=== PATIENT | female | born 1995 | race Caucasian/White ===

== ENCOUNTER 2017-03-14 09:11 | Observation (INO) | payer MEDICAID ==
[2017-03-14] MEDS ORDERED: Sodium Chloride 0.9% 1,000 ML IV ONE (09:18)
[2017-03-14] MEDS ORDERED: Promethazine 12.5 MG in Sodium Chloride 0.9% 50 ML IV PRN (09:34)
[2017-03-14] MEDS ORDERED: Morphine 2 MG/ML Syringe ONE (09:36)
[2017-03-14] MEDS ORDERED: Sodium Chloride 0.9% 1,000 ML IV SCH ×2 (09:45→11:30)
[2017-03-14] MEDS: Morphine 2 MG/ML Syringe IVPUSH PRN ×2 (09:48→11:12)
[2017-03-14] MEDS ORDERED: Ketorolac 60 MG/2 ML SDV IVPUSH ONE ×2 (12:18→15:52)
[2017-03-14] MEDS ORDERED: Ketorolac 30 MG/ML SDV ONE (12:27)
--- NOTE | 2017-03-15 02:41 | DISCH ---
This is a 21-year-old lady who was admitted for observation for IV fluids due to dehydration and pain control as well. She is status post tonsillectomy two days ago. She was given 2 L of normal saline while as an inpatient. She also received morphine 2 mg IV x2. This did bring the pain down from a 9 to a 4. This was followed with Toradol 15 mg IV, and this significantly reduced her pain. She slept for a couple of hours and now was able to eat Jell-O and other soft foods. The patient is feeling much better. We will finish the second liter of IV fluids, and she will be discharged home. She was also given Phenergan once here in the hospital. She will be discharged home with oxycodone 5 mg/teaspoon suspension 1 teaspoon every 4-6 hours as needed for pain control, giving 75 mL. We will give a second dose of Toradol 15 mg IV for a total of 30 mg here in the hospital, and she will also be discharged with Zofran 4 mg tablets ODT. She can take 1 tablet sublingual every 4-6 hours as needed for nausea, giving 10 tablets. She is to focus on drinking fluids and using a full liquid diet for the next day or so slowly advancing per her surgeon's recommendations. Followup should be here over the weekend as needed. The patient and her mother have no further questions. CRS/MODL /[id number]
== END 2017-03-14 16:00 | disposition home or self-care (01) ==
LOC: LB.IVTHER 09:11 → LB.ACU 09:11 → LB.MS 09:16
PROVIDERS: ADMIT Physician Assistant; ATTEND Physician Assistant
DX: E86.0 Dehydration (principal); G89.18 Other acute postprocedural pain; Z90.89 Acquired absence of other organs
CPT/HCPCS: J1885; J2270; J7040; 96361; 96374; 96375; 96376; G0378; G0379